=== PATIENT | male | born 1965 | race Caucasian/White ===

== ENCOUNTER → 2023-06-24 16:44 | Outpatient (CLI) | payer BC, SELFPAY ==
--- NOTE | ~2023-06-24 | XR_ITS ---
XR lumbar spine 2-3V DATE: 06/24/2023 17:07 INDICATION: Low back pain TECHNIQUE: AP, lateral, coned lateral lumbosacral views COMPARISON: None FINDINGS: Slight levoscoliosis. Osteopenia. Normal alignment of the lumbar spine. No fracture or bone destruction or spondylolisthesis. There is prominent anterosuperior spurring of the fourth lumbar vertebral body. There is severe degenerative disc disease at L5-S1. Lumbar interspaces are well preserved otherwise. The sacroiliac joints are intact. Incidentally noted is a 6 mm probable calcified calculus of the right kidney. There is a prominent am ount of fecal material in the colon. Status post right total hip arthroplasty. IMPRESSION: Severe degenerative disc disease at L5-S1 Prominent anterosuperior L4 vertebral body spurring Osteopenia Status post right total hip arthroplasty Probable 6 mm right renal calcified calculus Reviewed, dictated and finalized at location B. NOLOGY TRAINER
== END ==
PROVIDERS: PCP Family Medicine; Visit Provider Family Medicine
DX: M51.37 Other intervertebral disc degeneration, lumbosacral region (principal); M25.78 Osteophyte, vertebrae; M85.80 Other specified disorders of bone density and structure, unspecified site; Z96.641 Presence of right artificial hip joint
CPT/HCPCS: 72100

== ENCOUNTER → 2023-07-08 15:21 | Outpatient (CLI) | payer BC, SELFPAY ==
--- NOTE | ~2023-07-08 | MR_ITS ---
MRI of the lumbar spine Clinical History: Back pain Technique: Axial T2-weighted images, and sagittal T1-weighted, T2-weighted, and and T2 fat-sat images were acquired. Findings: No fracture seen. There is a 5 mm retrolisthesis of L5 over S1. No suspicious bone marrow s ignal abnormality seen. At L1-L2, there is mild disc bulge with moderate facet arthropathy. No central canal stenosis or neur al foraminal narrowing. At L2-L3, there is minimal disc bulge with moderate facet arthropathy. No central canal stenosis or n eural foraminal narrowing. At L3-L4, there is disc bulge with severe facet arthropathy. There is moderate central canal stenosis /thecal sac compression. There is moderate to severe bilateral neural foraminal narrowing. At L4-L5, there is disc bulge and advanced facet arthropathy, with mild to moderate central canal edwin nosis/thecal sac compression. There is moderate bilateral neural foraminal narrowing. At L5-S1, there is disc bulge and facet arthropathy. There is minimal central canal stenosis. There i s severe bilateral neural foraminal narrowing. Paravertebral soft tissues are unremarkable. Impression: Severe degenerative spondylosis, especially from L3-L4 through L5-S1. 5 mm retrolisthesis of L5 over S1. Reviewed, dictated and finalized at [facility]. E MAKER Impression: Severe degenerative spondylosis, especially from L3-L4 through L5-S1. 5 mm retrolisthesis of L5 over S1.
== END ==
PROVIDERS: PCP Family Medicine; Visit Provider Family Medicine
DX: M43.17 Spondylolisthesis, lumbosacral region (principal); M43.16 Spondylolisthesis, lumbar region
CPT/HCPCS: 72148

== ENCOUNTER 2024-01-28 16:36 | Outpatient (CLI) | payer BC, SELFPAY ==
--- NOTE | ~2024-01-28 | XR_ITS ---
EXAMINATION: XR chest 2V 01/28/2024 16:43 INDICATION: Lung crackles PROCEDURE: 2 view chest COMPARISON: 11/25/2003 FINDINGS: The lungs are clear. The cardiomediastinal silhouette is within normal limits. There are no pleural effusions. There is no pneumothorax suspected. IMPRESSION: 1: NO ACUTE CARDIOPULMONARY DISEASE. Reviewed, dictated and finalized at location B.
== END 2024-01-28 16:37 ==
PROVIDERS: PCP Nurse Practitioner Family; Visit Provider Nurse Practitioner Family
DX: R09.89 Other specified symptoms and signs involving the circulatory and respiratory systems (principal)
CPT/HCPCS: 71046

== ENCOUNTER 2025-01-27 16:32 | Outpatient (CLI) | payer BC, SELFPAY ==
--- NOTE | ~2025-01-27 | XR_ITS ---
EXAM: XR shoulder RT min 2V DATE: 01/27/2025 16:58 HISTORY: Pain in right shoulder . COMPARISON: None available. FINDINGS: Normal mineralization. No fracture or dislocation. No lytic or blastic lesion. Mild degene rative change at the AC joint and glenohumeral joint. Subacromial narrowing. No erosion or periosteal change. Soft tissues within normal limits. IMPRESSION: Mild polyarticular osteoarthritis of the right shoulder. Likely rotator cuff pathology. Reviewed, dictated and finalized at location K. IMPRESSION: Mild polyarticular osteoarthritis of the right shoulder. Likely rot ator cuff pathology.
== END 2025-01-27 16:33 | disposition home or self-care (01) ==
LOC: MICIMG 16:37
PROVIDERS: PCP Family Medicine; Visit Provider Family Medicine
DX: M25.511 Pain in right shoulder (principal)
CPT/HCPCS: 73030

== ENCOUNTER 2025-01-27 16:38 | Outpatient (CLI) | payer BC, SELFPAY ==
--- NOTE | ~2025-01-27 | XR_ITS ---
XR hip RT 2V w AP pelvis 01/27/2025 16:57 Indication: Right hip pain Procedure: AP pelvis and 2 views right hip Comparison: No prior studies for comparison. Findings: There is right total hip arthroplasty. Prosthesis well seated. No underlying fracture or tr aumatic malalignment. Mild osteoarthritis of the left hip. There is lower lumbar spondylosis. Pelvic rings intact. Impression: 1: No acute bone or joint abnormality. Reviewed, dictated and finalized at location A. Impression: 1: No acute bone or joint abnormality.
== END 2025-01-27 16:39 | disposition home or self-care (01) ==
LOC: MICIMG 16:39
PROVIDERS: PCP Family Medicine; Visit Provider Orthopaedic Surgery
DX: Z47.1 Aftercare following joint replacement surgery (principal); M16.12 Unilateral primary osteoarthritis, left hip; Z98.1 Arthrodesis status; Z96.641 Presence of right artificial hip joint
CPT/HCPCS: 73502

== ENCOUNTER 2025-03-04 15:29 | Outpatient (CLI) | payer BC, SELFPAY ==
--- NOTE | ~2025-03-04 | MR_ITS ---
EXAMINATION: MR lumbar spine wo con DATE: 03/04/2025 15:54 INDICATION: Low back pain. Spinal stenosis. TECHNIQUE: Magnetic resonance imaging (MRI) of the lumbar spine was performed without intravenous contrast. Sequences included sagittal T2-weighted FSE, sagittal T2-weighted FS FSE, sagittal T1-weighted FSE, and axial T2-weighted FSE. COMPARISON: Lumbar spine MRI 07/08/2023 FINDINGS: There is 5 degrees levocurvature of lumbar spine. There is 4 mm retrolisthesis of L5 on S1. Vertebral body heights are normal. There is mildly decreased disc height at L3-L4 and severely decreased disc height at L5-S1. The distal spinal cord signal intensity is normal. The conus medullaris is at L1. There is clumping of the nerve roots from L3 to S1, consistent with arachnoiditis. The following disc levels are specifically discussed: L1-L2: The disc does not extend beyond the endplate margin. There is severe right and moderate left facet joint osteoarthritis. There is no neural foraminal stenosis. There is no central canal stenosis. L2-L3: There is a left foraminal protrusion. There is moderate bilateral facet joint osteoarthritis. There is mild left neural foraminal stenosis. There is no central canal stenosis. L3-L4: The disc is bulging. There is severe bilateral facet joint osteoarthritis. There is mild right and moderate left neural foraminal stenosis. There is moderate central canal stenosis. L4-L5: The disc is bulging and has an annular fissure. There is severe bilateral facet joint osteoarthritis. There is mild right and moderate left neural foraminal stenosis. There is moderate central canal stenosis. L5-S1: The disc is bulging and has an annular fissure. There is severe bilateral facet joint osteoarthritis. There is moderate bilateral neural foraminal stenosis. There is mild central canal stenosis. There is posterior decompression. IMPRESSION: 1. Severe lumbar spondylosis, stable from 07/08/2023. 2. Arachnoiditis. Reviewed, dictated and finalized at location E.
== END 2025-03-04 15:30 | disposition home or self-care (01) ==
LOC: MICIMG 15:29
PROVIDERS: PCP Family Medicine; Visit Provider Family Medicine
DX: M48.062 Spinal stenosis, lumbar region with neurogenic claudication (principal); M43.06 Spondylolysis, lumbar region; G03.9 Meningitis, unspecified
CPT/HCPCS: 72148